=== PATIENT | male | born 1975 | race Caucasian/White ===

== ENCOUNTER 2025-04-09 18:05 | Emergency (ER) | payer OTHER, SELFPAY ==
[2025-04-09 18:09] VITALS: BP 128/81
[2025-04-09 18:31] LABS: Hematocrit 41.8 % (39.0-52.0); Hemoglobin 13.8 g/dL (13.0-18.0); Mean Corp Hgb Conc. 33.0 g/dL (33.0-37.0); Mean Corpuscular Volume 88.7 fL (80.0-94.0); Nucleated Red Blood Cells % 0 % (-); Platelet Count 267 10^3/uL (130-400); Red Cell Dist. Width 13.5 % (11.5-14.5)
[2025-04-09 18:43] LABS: ALT (SGPT) 17 U/L (0-50); AST (SGOT) 18 U/L (17-59); Albumin 4.1 g/dl (3.5-5.0); Alkaline Phosphatase 63 U/L (38-126); Blood Urea Nitrogen 18 mg/dl (9-20); Calcium 9.2 mg/dl (8.4-10.2); Carbon Dioxide 28 mmol/L (22-30); Chloride 107 mmol/L (98-107); Glucose 144 mg/dl (70-99); Potassium 3.9 mmol/L (3.5-5.1); Sodium 140 mmol/L (135-145); Total Protein 6.7 g/dl (6.3-8.2); eGFR > 60.00
--- NOTE | 2025-04-09 20:15 | ED.GENMED ---
History of Present Illness
General
Chief Complaint: Skin Problem
Time Seen by Provider: 04/09/25 20:07
History of Present Illness
History of Present Illness:
50-year-old male with history of insulin-dependent diabetes presents to the emergency department for evaluation of a not improving ulceration to the right great toe. Has been on Augmentin and Bactrim for the past several days without improvement.
Noted increased bleeding after removing his work boot today. No fevers or chills. No pain to the site. Does not routinely see podiatry
Review of Systems
Review of Systems
Allergies reviewed?: Yes
All Other Systems: ROS reviewed and negative except as documented in HPI and ROS
Phy Exam
Physical Exam
Physical Exam:
GEN: Well appearing, NAD, WDWN
HEENT: Oral mucosa moist, no scleral icterus
Cardiac: Regular rate
Lung: No respiratory distress, no tachypnea
MSK: No gross deformity or injuries
Skin: Good color, no pallor or jaundice, no rashes. 5 mm partial-thickness ulceration to the plantar aspect of the right great toe with no surrounding erythema or purulent discharge, no erythema or swelling of the right great toe or midfoot.
Strong right dorsalis pedis pulse. Sensation to the right toes intact
Neuro: AO x3, moves all extremities freely
Psych: Calm, cooperative
Course
Orders/Labs/Results
Orders:
Orders
04/09/25 18:21
C-Reactive Protein Urgent
CMP [Comprehensive Metabolic Panel] Urgent
Complete Blood Count/With Diff Urgent
Erythrocyte Sed Rate Urgent
Comment: ADD ON
04/09/25 20:12
Add On- LAB Urgent
Tests Added?: CRP, ESR
04/09/25 20:15
CR Toe(s) Min 2 Vw Right Urgent
Comment:
Reason For Exam: R great toe ulcer
Abnormal Lab Results
04/09/25
18:21
MPV 10.8 H fL
(7.4-10.4)
Glucose 144 H mg/dl
(70-99)
04/09/25 18:21
04/09/25 18:21
Vital Signs
Initial and Last Documented VS:
Initial Vital Signs
Temp Pulse Resp BP Pulse Ox
98.1 F 77 18 128/81 99
04/09/25 18:09 04/09/25 18:09 04/09/25 18:09 04/09/25 18:09 04/09/25 18:09
Last Documented Vital Signs
Temp Pulse Resp BP Pulse Ox
98.1 F 77 18 128/81 99
04/09/25 18:09 04/09/25 18:09 04/09/25 18:09 04/09/25 18:09 04/09/25 20:17
MDM/Problems Addressed
MDM/Problems Addressed:
No clinical evidence of cellulitis or osteomyelitis. Labs are reassuring. Wound was dressed with a hydrocolloid dressing, educated patient on wound care, recommend podiatry for wound care follow-up
*Pulse Oximetry
SaO2: 99
Oxygen Mode of Delivery: Room air
Patient hypoxic: no
*Critical Care Note
Total Time (30-74mins, 75-104mins- exclusive of procedures): Not Applicable
ED Attending Note
-
Portions of this chart may have been created with voice recognition software.� Occasional wrong word or��sound alike� substitutions may have occurred due to the inherent limitations of voice recognition software.
Discharge Plan
Departure
Patient Disposition: Home (Routine Discharge)
Date of Disposition: 04/09/25
Time of Disposition: 20:52
Patient with high blood pressure during this ER visit?: No
Discharge Problem:
Diabetic toe ulcer
Instructions: Wound Care (DC)
Referrals:
Reid Tamayo DO [Family Provider, Family Practice]
Junior Chin MD [Active, Plastic Surgery]
Aby Maharaj DPM [Specified Professional Personl, Podiatry]
Activity Restrictions/Additional Instructions:
Wash the soap and water daily and replace dressing when working/walking
Interventions
Interventions:
*Risk Screen - Suicide Last Done: 04/09/25 18:09
*General Assessment Last Done: 04/09/25 18:09
*Nursing Disposition Last Done: 04/09/25 21:08
Discharge Date and Time
Discharge Date/Time: 04/09/25 21:09
Print Language: [place]
[2025-04-09 21:01] LABS: C-Reactive Protein < 5.00 mg/L (0.0-10.00)
== END 2025-04-09 21:09 | disposition home or self-care (01) ==
LOC: EMR 18:05
PROVIDERS: Emergency Medicine; EMERGENCY PHYSICIAN Emergency Medicine; FAMILY PHYSICIAN Family Medicine
DX: E11.621 Type 2 diabetes mellitus with foot ulcer (principal); L97.519 Non-pressure chronic ulcer of other part of right foot with unspecified severity; Z79.4 Long term (current) use of insulin
CPT/HCPCS: 99284; 73660; 80053; 85025; 85652; 86140

== ENCOUNTER → 2025-04-13 08:03 | Outpatient (REF) | payer OTHER, SELFPAY | LOC: WOUND 08:03 | PROVIDERS: ATTENDING PHYSICIAN Surgery; FAMILY PHYSICIAN Family Medicine | DX: E11.621 Type 2 diabetes mellitus with foot ulcer (principal); L97.512 Non-pressure chronic ulcer of other part of right foot with fat layer exposed; Z79.4 Long term (current) use of insulin; E11.59 Type 2 diabetes mellitus with other circulatory complications; E11.65 Type 2 diabetes mellitus with hyperglycemia; E11.69 Type 2 diabetes mellitus with other specified complication | CPT/HCPCS: 99203 ==

== ENCOUNTER → 2025-04-20 14:34 | Outpatient (REF) | payer OTHER, SELFPAY | LOC: WOUND 14:34 | PROVIDERS: ATTENDING PHYSICIAN Surgery; FAMILY PHYSICIAN Family Medicine | DX: E11.621 Type 2 diabetes mellitus with foot ulcer (principal); L97.512 Non-pressure chronic ulcer of other part of right foot with fat layer exposed; E11.59 Type 2 diabetes mellitus with other circulatory complications; E11.65 Type 2 diabetes mellitus with hyperglycemia; E11.69 Type 2 diabetes mellitus with other specified complication; Z79.4 Long term (current) use of insulin | CPT/HCPCS: 99213 ==